=== PATIENT | male | born 1945 | race Caucasian/White ===

== ENCOUNTER 2020-05-17 08:09 | Emergency (ER) | payer MEDICARE, OTHER ==
[~2020-05-17 08:09] MED LIST: ASPIR 8181 MG PO; FLOMAX 0.4 MG0.4 MG PO; GLUCOPHAGE1000 MG PO; HYDROCHLOROTHIA25 MG PO; LISINOPRIL40 MG PO; MULTIVITAMIN1 EACH PO; NOVOLIN 70100 UNIT/1 SQ; PERCOCET 5-3251 EACH PO; ZOCOR80 MG PO; ZOFRAN ODT 4 MG4 MG PO
[2020-05-17 10:00] LABS: RED BLOOD COUNT 3.11 M/UL (4.20-5.50); WHITE BLOOD COUNT 15.1 K/UL (4.5-11.0)
[2020-05-17 10:06] LABS: BUN/CREATININE RATIO 28 (0-10)
[2020-05-19 04:25] LABS: ACINETOBACTER BAUMANNII Not Detected (Negative); CANDIDA ALBICANS Not Detected (Negative); CANDIDA KRUSEI Not Detected (Negative); CANDIDA TROPICALIS Not Detected (Negative); ENTEROCOCCUS Not Detected (Negative); ESCHERICHIA COLI Not Detected (Negative); HAEMOPHILUS INFLUENZAE Not Detected (Negative); KLEBSIELLA OXYTOCA Not Detected (Negative); KLEBSIELLA PNEUMONIAE Not Detected (Negative); KPC-CARBAPENEM-RESISTANCE GENE Not Detected (Negative); PROTEUS Not Detected (Negative); PSEUDOMONAS AERUGINOSA Not Detected (Negative); SERRATIA MARCESANS Not Detected (Negative); STREP AGALACTIAE (GROUP B) Not Detected (Negative); STREP PYOGENES (GROUP A) Not Detected (Negative); STREPTOCOCCUS Not Detected (Negative); mecA (METHICILLIN RESIST GENE Not Detected (Negative); vanA/B (VANCOMYCIN RESIST GENE Not Detected (Negative)
[2020-05-19 04:26] LABS: STAPHYLOCOCCUS DETECTED (Negative); STAPHYLOCOCCUS AUREUS DETECTED (Negative)
== END 2020-05-17 21:00 | disposition short-term general hospital (02) ==
LOC: ER1 08:09
PROVIDERS: Physician Assistant
DX: L02.413 Cutaneous abscess of right upper limb (principal); E11.9 Type 2 diabetes mellitus without complications; I10 Essential (primary) hypertension; Z20.822 Contact with and (suspected) exposure to COVID-19; Z85.118 Personal history of other malignant neoplasm of bronchus and lung
CPT/HCPCS: 73201; 80053; 82962; 84550; 85025; 85652; 86140; 87040; 87077; 87150; 87186; 93971; 96365; 96366; 96367; 96375; 96376; 99284; J1170; J2270; J2405; J2543; J3370; J7050; Q9967; U0002